=== PATIENT | female | born 1980 | race Caucasian/White ===

== ENCOUNTER 2024-07-02 14:43 | Outpatient (CLI) | payer BC | END 2024-07-02 14:44 | disposition home or self-care (01) | LOC: CSHMAMMO 14:43 | PROVIDERS: ATTEND Obstetrics & Gynecology | DX: Z12.31 Encounter for screening mammogram for malignant neoplasm of breast (principal); N64.89 Other specified disorders of breast; Z80.3 Family history of malignant neoplasm of breast | CPT/HCPCS: 77063; 77067 ==

== ENCOUNTER 2024-07-05 08:22 | Outpatient (CLI) | payer BC | END 2024-07-05 08:23 | disposition home or self-care (01) | LOC: CSHMAMMO 08:22 | PROVIDERS: ATTEND Obstetrics & Gynecology | DX: N64.89 Other specified disorders of breast (principal) | CPT/HCPCS: G0279 ==